=== PATIENT | male | born 1970 | race Caucasian/White ===

== ENCOUNTER → 2018-01-28 13:12 | Outpatient (CLI) | payer MEDICARE, BC ==
[2018-02-03 19:11] LABS: AFB SPECIMEN PROCESSING Concentration (())
[2018-02-20 12:16] LABS: ACID FAST SMEAR Negative (())
[2018-02-23 13:13] LABS: ACID FAST CULTURE Positive (()); M TUBERCULOSIS Negative (())
[2018-03-11 15:25] LABS: AMIKACIN 8.0 ug/mL (())
== END | disposition home or self-care (01) ==
LOC: D.LABREF 13:12
PROVIDERS: Student in an Organized Health Care Education/Training Program
DX: A31.0 Pulmonary mycobacterial infection (principal)